=== PATIENT | male | born 1955 | race Caucasian/White ===

== ENCOUNTER 2020-08-04 13:50 | Inpatient (IN) ==
[2020-08-04 16:17] LABS: Bacteria,Urine Few per hpf (None-Few); Bilirubin,Urine Negative (Negative); Blood,Urine Trace (Negative); Clarity,Urine Clear (Clear); Color,Urine Yellow (Yellow); Glucose,Urine (UA) Normal (Normal); Ketones,Urine 20 mg/dL (Negative); Leukocyte Esterase,Urine Negative (Negative); Mucus,Urine Few per lpf (None-Few); Nitrite,Urine Negative (Negative); Protein,Urine 30 mg/dL (Neg-Trace); Specific Gravity,Urine 1.029 (1.010-1.025); Urobilinogen,Urine Normal (Normal); WBC,Urine 0-3 per hpf (0-3)
[2020-08-04 16:20] LABS: Basophils % 0.7 %; Eosinophils # 0.1 K/mcL (0.0-0.6); Eosinophils % 0.9 %; Hematocrit 44.4 % (37.5-50.1); Hemoglobin 14.4 g/dL (12.9-16.9); Immature Granulocytes % 0.2 % (0-4); Lymphocytes # 1.1 K/mcL (0.6-4.6); Lymphocytes % 19.2 %; Mean Corpuscular HGB Conc 32.4 g/dL (31.6-35.5); Mean Corpuscular Hemoglobin 30.6 pg (28.0-33.3); Mean Corpuscular Volume 94.5 fL (83.0-100.0); Mean Platelet Volume 9.9 fL (9.4-12.4); Monocytes # 0.5 K/mcL (0.0-1.3); Monocytes % 7.7 %; Neutrophils # 4.2 K/mcL (1.6-8.9); Platelet Count 220 K/mcL (140-400); Red Cell Distribution Width 12.3 % (11.5-14.5); Segmented Neutrophils % 71.3 %; White Blood Count 5.8 K/mcL (4.3-11.1)
[2020-08-04 16:24] LABS: Amphetamine Screen,Urine Negative ng/mL (Cutoff=1000); Barbiturate Screen,Urine Negative ng/mL (Cutoff=200); Benzodiazepines Screen,Urine Negative ng/mL (Cutoff=200); Cannabinoid Screen,Urine Negative ng/mL (Cutoff = 50); Cocaine Screen,Urine Negative ng/mL (Cutoff= 300); Opiate Screen,Urine Negative ng/mL (Cutoff=300); Phencyclidine Screen,Urine Negative ng/mL (Cutoff=25)
[2020-08-04 16:40] LABS: INR 1.1; Prothrombin Time 12.4 Seconds (9.4-12.1)
[2020-08-04 16:42] LABS: Activated Partial Thrombo Time 28.8 Seconds (26.0-36.0)
[2020-08-04 16:47] LABS: Alanine Aminotransferase 27 Units/L (7-52); Albumin 4.6 g/dL (3.5-5.7); Albumin/Globulin Ratio 1.6 (1.1-2.2); Alkaline Phosphatase 74 Units/L (34-104); Aspartate Amino Transferase 23 Units/L (13-39); BUN/Creatinine Ratio 28 (6-26); Bilirubin,Direct 0.1 mg/dL (0.0-0.2); Bilirubin,Indirect 0.4 mg/dL (0.0-1.0); Bilirubin,Total 0.5 mg/dL (0.3-1.0); Blood Urea Nitrogen 24 mg/dL (8-23); Calcium 10.1 mg/dL (8.6-10.3); Carbon Dioxide 23 mEq/L (23-29); Chloride 106 mEq/L (98-107); Ethanol < 10 mg/dL (Less than 10); Globulin 2.8 g/dL (2.4-3.5); Glucose 97 mg/dL (70-105); Osmolality,Calculated 290 (280-300); Potassium 3.9 mEq/L (3.5-5.1); Sodium 138 mEq/L (136-145); Total Protein 7.4 g/dL (6.4-8.9); Troponin I < 0.03 ng/mL (< 0.04); eGFR For African Americans > 60 (> 60); eGFR For Non-African Americans > 60 (> 60)
[2020-08-04 22:03] LABS: Carbamazepine (Tegretol) 2 mcg/mL (4-12)
[2020-08-04 22:40] LABS: Acetaminophen < 10 mcg/mL (10-20); Salicylate < 2.5 mg/dL (15.0-30.0)
[2020-08-04] MEDS ORDERED: MOM Conc 10 ML UD.LIQ PO PRN (23:09)
[2020-08-04] MEDS ORDERED: hydrOXYzine pamoate 25 MG CAPSULE PO PRN (23:09)
[2020-08-04] MEDS ORDERED: traZODone 50 MG TABLET PO PRN (23:09)
[2020-08-04] MEDS ORDERED: Haloperidol Lactate 5 MG/ML VIAL IM PRN (23:09)
[2020-08-04] MEDS ORDERED: Acetaminophen 325 MG TABLET PO PRN (23:09)
[2020-08-04] MEDS ORDERED: haloperidoL 5 MG TABLET PO PRN (23:09)
[2020-08-04] MEDS ORDERED: Mag Hydrox/Al Hydrox/Simeth 30 ML UDC PO PRN (23:09)
[2020-08-04] MEDS ORDERED: *HR* LORazepam 1 MG TABLET PO PRN (23:09)
[2020-08-04] MEDS ORDERED: *HR* LORazepam 2 MG/ML VIAL IM PRN (23:09)
[2020-08-04] MEDS ORDERED: cloNIDine HCL 0.1 MG TABLET PO ONE (23:10)
[2020-08-05] MEDS ORDERED: *HR* LORazepam 2 MG/ML VIAL IM ONE ×2 (10:30→12:23)
[2020-08-05] MEDS: CarBAMazepine XR (12 hr) 100 MG TAB PO SCH ×2 (12:24→22:26)
[2020-08-05] MEDS: Celecoxib 200 MG CAPSULE PO SCH (12:24)
[2020-08-05] MEDS ORDERED: NON-FORMULARY MEDICATION 1 EACH EACH (Hydroxyzine Hcl [Hydroxyzine Hcl] 25 MG Tablet) PO PRN (17:15)
[2020-08-05] MEDS ORDERED: CARBAMAZEPINE 400 MG PO SCH (21:00)
[2020-08-06] MEDS: CarBAMazepine XR (12 hr) 100 MG TAB PO SCH ×3 (01:47→21:01)
[2020-08-06] MEDS ORDERED: Celecoxib 200 MG CAPSULE PO SCH (09:00)
[2020-08-06] MEDS: Celecoxib 200 MG CAPSULE PO SCH (12:45)
[2020-08-06] MEDS ORDERED: *HR* LORazepam 1 MG TABLET PO ONE (13:00)
[2020-08-06] MEDS: *HR* LORazepam 1 MG TABLET PO SCH ×2 (16:09→21:03)
[2020-08-07] MEDS: CarBAMazepine XR (12 hr) 100 MG TAB PO SCH ×2 (09:32→21:07)
[2020-08-07] MEDS: *HR* LORazepam 1 MG TABLET PO SCH ×3 (09:33→21:07)
[2020-08-07] MEDS: Celecoxib 200 MG CAPSULE PO SCH (09:33)
[2020-08-08] MEDS: *HR* LORazepam 1 MG TABLET PO SCH (09:16)
[2020-08-08] MEDS: CarBAMazepine XR (12 hr) 100 MG TAB PO SCH ×2 (09:16→21:22)
[2020-08-08] MEDS: Celecoxib 200 MG CAPSULE PO SCH (09:18)
[2020-08-08] MEDS: *HR* LORazepam 0.5 MG TABLET PO SCH ×2 (15:32→21:22)
[2020-08-09] MEDS: Celecoxib 200 MG CAPSULE PO SCH (09:02)
[2020-08-09] MEDS: CarBAMazepine XR (12 hr) 100 MG TAB PO SCH ×2 (09:03→20:53)
[2020-08-09] MEDS: *HR* LORazepam 0.5 MG TABLET PO SCH ×2 (09:03→20:54)
[2020-08-10] MEDS: *HR* LORazepam 0.5 MG TABLET PO SCH (09:15)
[2020-08-10] MEDS: Celecoxib 200 MG CAPSULE PO SCH (09:15)
[2020-08-10] MEDS: CarBAMazepine XR (12 hr) 100 MG TAB PO SCH ×2 (09:16→21:02)
[2020-08-11] MEDS ORDERED: *HR* LORazepam 0.5 MG TABLET PO SCH (09:00)
[2020-08-11] MEDS: Celecoxib 200 MG CAPSULE PO SCH (09:04)
[2020-08-11] MEDS: CarBAMazepine XR (12 hr) 100 MG TAB PO SCH ×2 (09:04→20:27)
[2020-08-12 09:07] VITALS: BP 129/83
[2020-08-12] MEDS: CarBAMazepine XR (12 hr) 100 MG TAB PO SCH (09:22)
[2020-08-12] MEDS: Celecoxib 200 MG CAPSULE PO SCH (09:23)
== END 2020-08-12 14:30 | disposition home or self-care (01) | DRG 885 ==
LOC: 1ANU 13:50 → EMEROOARM 13:50 → 1ANU 08-05 00:45
PROVIDERS: ADMIT Psychiatry & Neurology Forensic Psychiatry; ATTEND Psychiatry & Neurology Forensic Psychiatry